=== PATIENT | female | born 2000 | race Caucasian/White ===

== ENCOUNTER 2018-06-03 19:25 | Emergency (ER) | payer MEDICAID ==
[~2018-06-03] VITALS: Ht 165.1 cm; Wt 63.6 kg
[2018-06-03] MEDS ORDERED: IBUP-2071 PO (19:40)
[2018-06-03] MEDS ORDERED: CYCLOBENZAPRINE HCL 10 MG TABLET PO ONE (21:00)
[2018-06-03] MEDS ORDERED: KETOROLAC TROMETHAMINE 60 MG/2 ML VIAL IM ONE (21:00)
[2018-06-03 21:30] VITALS: BP 122/70
== END 2018-06-03 21:41 | disposition home or self-care (01) ==
LOC: EMS 19:26
DX: G89.29 Other chronic pain (principal); M54.5 Low back pain; M25.551 Pain in right hip; Z79.899 Other long term (current) drug therapy
CPT/HCPCS: 81002; 81025; 96372; 99283; J1885

== ENCOUNTER 2019-03-14 21:41 | Emergency (ER) | payer MEDICAID ==
[~2019-03-14] VITALS: Ht 167.6 cm; Wt 79.1 kg
[~2019-03-14 21:41] MED LIST: IBUP-2071 PO
[2019-03-14] MEDS ORDERED: ACETAMINOPHEN 500 MG TABLET PO ONE (22:15)
[2019-03-14 22:33] LABS: INFLUENZA TYPE A NEGATIVE FOR TYPE A (NEGATIVE); INFLUENZA TYPE B NEGATIVE FOR TYPE B (NEGATIVE)
[2019-03-14 22:59] VITALS: BP 136/83
[2019-03-14] MEDS ORDERED: IBUPROFEN 800 MG TABLET PO ONE (23:00)
== END 2019-03-14 23:05 | disposition home or self-care (01) ==
LOC: EMS 21:42
DX: J11.1 Influenza due to unidentified influenza virus with other respiratory manifestations (principal); J34.89 Other specified disorders of nose and nasal sinuses; G89.29 Other chronic pain
CPT/HCPCS: 87804